=== PATIENT | female | born 1945 | race Two or more races ===

== ENCOUNTER 2021-08-25 19:49 | Emergency (ER) | payer OTHER ==
[~2021-08-25] VITALS: Ht 152.4 cm; Wt 59.0 kg
[2021-08-25] MEDS ORDERED: MOTION SICKNESS25 M5 (20:00)
[2021-08-25] MEDS ORDERED: LANTUS SOL100 UNIT/1 (20:00)
[2021-08-25] MEDS ORDERED: DOCUSATE CALCI240 MG (20:01)
[2021-08-25] MEDS ORDERED: ISOSORBIDE DINI30 MG (20:01)
[2021-08-25] MEDS ORDERED: SIMVASTATIN5 MG (20:01)
[2021-08-25] MEDS ORDERED: ACID CONTROLLER20 MG (20:02)
[2021-08-25] MEDS ORDERED: DUTOPROL 100-11 EACH (20:02)
[2021-08-25] MEDS ORDERED: HYDROCHLOROTHIA25 MG (20:02)
[2021-08-25] MEDS ORDERED: COZAAR100 MG (20:03)
[2021-08-25] MEDS ORDERED: LEVOXYL100 MCG (20:03)
[2021-08-25] MEDS ORDERED: GABAPENTIN100 M2 (20:03)
[2021-08-25] MEDS ORDERED: NOVOLOG100 UNIT/1 (20:03)
[2021-08-26] MEDS ORDERED: DOLOGESIC 500-1 EACH PO (04:40)
== END 2021-08-26 04:54 ==
LOC: ER 19:49
DX: D25.9 Leiomyoma of uterus, unspecified (principal); K59.09 Other constipation; E11.9 Type 2 diabetes mellitus without complications; I10 Essential (primary) hypertension; E03.9 Hypothyroidism, unspecified; E78.00 Pure hypercholesterolemia, unspecified; Z79.4 Long term (current) use of insulin